=== PATIENT | male | born 1945 | race Caucasian/White ===

== ENCOUNTER 2018-09-14 09:33 | Emergency (ER) | payer MEDICARE, BC ==
[~2018-09-14] VITALS: Ht 177.8 cm; Wt 76.0 kg
[2018-09-14 11:14] LABS: CHLORIDE 106 mEq/L (98-107); HEMATOCRIT. 39.7 % (42.0-52.0); HEMOGLOBIN. 13.2 g/dL (14.0-18.0); MEAN CORPUSCULAR HEMOGLOBIN 31.5 pg (28.0-32.0); MEAN CORPUSCULAR VOLUME 94.4 fL (80.0-94.0); MEAN PLATELET VOLUME 8.3 fl (7.4-10.4); PLATELET 231 x1000/uL (130-400); RED BLOOD CELL COUNT 4.21 mill/uL (4.7-6.1); RED CELL DISTRIBUTION WIDTH 14.3 % (11.6-14.6)
[2018-09-14 11:39] LABS: PLATELET ESTIMATE NORMAL
[2018-09-14 11:47] LABS: BG BASE EXCESS 1.2 mmol/L (-2.0-2.0); BG CARBOXYHEMOGLOBIN 0.4 % (0.5-1.5); BG FRACTION INSPIRED OXYGEN 21; BG HCO3 ACT 25.7 mmol/L (22.0-26.0); BG METHEMOGLOBIN 0.1 % (0.0-1.5); BG OXYHEMOGLOBIN 94.5 % (94.0-97.0); BG PH 7.425 (7.350-7.450); BG PO2 74.7 mmHg (75.0-100.0); BG SAMPLE SITE RIGHT RADIAL; BG TOTAL HEMOGLOBIN 13.3 g/dL (12.0-18.0); BG VENT MODE ROOM AIR
[2018-09-14] MEDS ORDERED: IOHEXOL-350 100 ML BOTTLE ONE (12:56)
[2018-09-14 13:43] VITALS: BP 133/80
== END 2018-09-14 13:54 | disposition home or self-care (01) ==
LOC: ER 09:42
DX: J44.9 Chronic obstructive pulmonary disease, unspecified (principal); E78.00 Pure hypercholesterolemia, unspecified; I10 Essential (primary) hypertension; Z98.890 Other specified postprocedural states; Z88.1 Allergy status to other antibiotic agents
CPT/HCPCS: 36415; 36600; 71045; 71275; 80053; 82375; 82805; 83880; 84484; 85025; 85379; 93005; 99284; Q9967

== ENCOUNTER → 2019-10-27 | Outpatient (CLI) | payer MEDICARE, BC | END | disposition home or self-care (01) | LOC: CT 09:20 | PROVIDERS: ATTEND Internal Medicine Critical Care Medicine | DX: I25.10 Atherosclerotic heart disease of native coronary artery without angina pectoris (principal); J43.9 Emphysema, unspecified; K86.89 Other specified diseases of pancreas; R91.1 Solitary pulmonary nodule | CPT/HCPCS: 71250 ==